=== PATIENT | male | born 1935 | race Caucasian/White ===

== ENCOUNTER 2017-12-04 11:14 | Inpatient (IN) | payer MEDICARE ==
--- NOTE | 2017-12-04 11:31 | ER Document Report ---
ED General - General Stated Complaint: POSSIBLE SYNCOPE Time Seen by Provider: 12/04/17 11:24 Notes: 82-year-old male to the emergency department chief complaint of syncope. Patient went to the bathroom and felt like he was going to pass out. Was able to get back to his chair. He was watching TV with his loved ones. He then had a syncopal episode. Had questionable seizure-like activity at that time. Patient does not really remember what happened. Did not hit his head. Denies any major pain or issues at this time. States that he is recently started a diuretic which has made his blood pressure low. States that his blood pressure has been running low on a home blood pressure monitor with systolic blood pressures in the 90s. Denies any black tarry stools. Denies any bright red blood in his stool. Denies any abdominal pain at this time. Patient does have a history of coronary artery disease with 3 stents. Had a abdominal aortic aneurysm repair (scheduled) approximately 4 years ago. Is not taking any blood thinners other than Plavix. - HPI Onset: Just prior to arrival Onset/Duration: Sudden - Related Data Allergies/Adverse Reactions: No Known Allergies Allergy (Unverified 12/04/17 12:39) Past Medical History - General Information source: Patient, Relative - Social History Smoking Status: Smoker,Current Status Unk Cigarette use (# per day): No Frequency of alcohol use: None Drug Abuse: None Lives with: Family Family History: Reviewed & Not Pertinent - Past Medical History Cardiac Medical History: Reports: Hx Congestive Heart Failure, Hx Coronary Artery Disease, Hx Hypertension, Hx Peripheral Vascular Disease Pulmonary Medical History: Reports: None EENT Medical History: Reports: None Neurological Medical History: Reports: None Endocrine Medical History: Reports: None Renal/ Medical History: Reports: None Malignancy Medical History: Reports None GI Medical History: Reports: None Musculoskeltal Medical History: Reports None Skin Medical History: Reports None Psychiatric Medical History: Reports: None Review of Systems - Review of Systems Constitutional: No symptoms reported EENT: No symptoms reported Cardiovascular: Syncope, Dizziness, Lightheaded, Edema. denies: Orthopnea, Dyspnea Respiratory: No symptoms reported Gastrointestinal: No symptoms reported Genitourinary: No symptoms reported Male Genitourinary: No symptoms reported Musculoskeletal: No symptoms reported Skin: No symptoms reported Hematologic/Lymphatic: No symptoms reported Neurological/Psychological: No symptoms reported, See HPI, Confusion, Seizure, Lost consciousness Physical Exam - Vital signs Vitals: Temp Resp Pulse Ox 98.3 F 17 95 12/04/17 11:21 12/04/17 11:21 12/04/17 11:21 Interpretation: Normal - General General appearance: Appears well, Alert - HEENT Head: Normocephalic, Atraumatic Eyes: Normal Pupils: PERRL - Respiratory Respiratory status: No respiratory distress Chest status: Nontender Breath sounds: Normal Chest palpation: Normal - Cardiovascular Rhythm: Regular Heart sounds: Normal auscultation Murmur: No - Abdominal Inspection: Normal Distension: No distension Bowel sounds: Normal Tenderness: Nontender Organomegaly: No organomegaly - Back Back: Normal, Nontender - Extremities General upper extremity: Normal inspection, Nontender, Normal color, Normal ROM , Normal temperature General lower extremity: Normal inspection, Nontender, Edema, Normal color, Normal ROM, Normal temperature. No: Zander's sign - Neurological Neuro grossly intact: Yes Cognition: Normal Orientation: AAOx4 Cecil Coma Scale Eye Opening: Spontaneous Cecil Coma Scale Verbal: Oriented Cecil Coma Scale Motor: Obeys Commands Cecil Coma Scale Total: 15 Speech: Normal Motor strength normal: LUE, RUE, LLE, RLE Sensory: Normal - Psychological Associated symptoms: Normal affect, Normal mood - Skin Skin Temperature: Warm Skin Moisture: Dry Skin Color: Normal Course - Re-evaluation Re-evalutation: 12/04/17 14:28 At this time patient's labs are fairly unremarkable EKG unremarkable. Blood pressure is 93/60 so still little bit low. Will admit to telemetry on observation status. Consulted with Dr. Springer who agrees with admit. 12/04/17 14:29 Laboratory 12/04/17 12/04/17 12/04/17 11:39 11:39 11:39 WBC 9.0 RBC 3.96 L Hgb 12.7 L Hct 37.9 MCV 96 MCH 31.9 MCHC 33.4 RDW 14.0 Plt Count 220 Seg Neutrophils % 72.8 Lymphocytes % 13.5 Monocytes % 10.1 Eosinophils % 3.1 Basophils % 0.5 Absolute Neutrophils 6.6 Absolute Lymphocytes 1.2 Absolute Monocytes 0.9 Absolute Eosinophils 0.3 Absolute Basophils 0.0 Sodium Cancelled Potassium Cancelled Chloride Cancelled Carbon Dioxide Cancelled Anion Gap Cancelled BUN Cancelled Creatinine Cancelled Est GFR ( Amer) Cancelled Est GFR (Non-Af Amer) Cancelled Glucose Cancelled Calcium Cancelled Total Bilirubin Cancelled Direct Bilirubin Cancelled Neonat Total Bilirubin Cancelled Neonat Direct Bilirubin Cancelled Neonat Indirect Bili Cancelled AST Cancelled ALT Cancelled Alkaline Phosphatase Cancelled Creatine Kinase Cancelled CK-MB (CK-2) Cancelled Troponin I Cancelled NT-Pro-B Natriuret Pep Cancelled Total Protein Cancelled Albumin Cancelled Urine Color Urine Appearance Urine pH Ur Specific Preston Urine Protein Urine Glucose (UA) Urine Ketones Urine Blood Urine Nitrite Urine Bilirubin Urine Urobilinogen Ur Leukocyte Esterase Urine WBC (Auto) Squamous Epi Cells Auto Urine Mucus (Auto) Urine Ascorbic Acid 12/04/17 12/04/17 12/04/17 12:26 12:26 13:50 WBC RBC Hgb Hct MCV MCH MCHC RDW Plt Count Seg Neutrophils % Lymphocytes % Monocytes % Eosinophils % Basophils % Absolute Neutrophils Absolute Lymphocytes Absolute Monocytes Absolute Eosinophils Absolute Basophils Sodium 141.3 Potassium 4.8 Chloride 100 Carbon Dioxide 31 H Anion Gap 10 BUN 37 H Creatinine 0.95 Est GFR ( Amer) > 60 Est GFR (Non-Af Amer) > 60 Glucose 106 Calcium 9.8 Total Bilirubin 0.5 Direct Bilirubin 0.3 Neonat Total Bilirubin Not Reportable Neonat Direct Bilirubin Not Reportable Neonat Indirect Bili Not Reportable AST 24 ALT 26 Alkaline Phosphatase 74 Creatine Kinase 39 L CK-MB (CK-2) 0.54 Troponin I < 0.012 NT-Pro-B Natriuret Pep 322 Total Protein 6.2 L Albumin 3.9 Urine Color YELLOW Urine Appearance CLEAR Urine pH 5.0 Ur Specific Preston 1.011 Urine Protein NEGATIVE Urine Glucose (UA) NEGATIVE Urine Ketones NEGATIVE Urine Blood NEGATIVE Urine Nitrite NEGATIVE Urine Bilirubin NEGATIVE Urine Urobilinogen NEGATIVE Ur Leukocyte Esterase NEGATIVE Urine WBC (Auto) 0 Squamous Epi Cells Auto <1 Urine Mucus (Auto) RARE Urine Ascorbic Acid NEGATIVE 12/04/17 14:29 Chest X-Ray 12/04/17 11:30 IMPRESSION: HEART ENLARGED WITHOUT FAILURE. NO OTHER SIGNIFICANT RADIOGRAPHIC FINDING IN THE CHEST. - Vital Signs Vital signs: Temp Pulse Resp BP Pulse Ox 98.3 F 12 93/61 L 94 12/04/17 11:21 12/04/17 14:01 12/04/17 14:01 12/04/17 14:01 - Laboratory Result Diagrams: 12/04/17 11:39 12/04/17 12:26 Laboratory results interpreted by me: 12/04/17 12/04/17 11:39 12:26 RBC 3.96 L Hgb 12.7 L Carbon Dioxide 31 H BUN 37 H Creatine Kinase 39 L Total Protein 6.2 L - EKG Interpretation by Me EKG shows normal: Sinus rhythm, [place], Intervals, QRS Complexes, ST-T Waves Discharge - Discharge Clinical Impression: Syncope and collapse Hypotension Qualifiers: Hypotension type: unspecified hypotension type Qualified Code(s): I95.9 - Hypotension, unspecified Disposition: ADMITTED OBSERVATION Admitting Provider: Hospitalist - [facility] Admitted: Telemetry
[2017-12-04 11:58] LABS: ABSOLUTE EOSINOPHILS # (AUTO) 0.3 10^3/uL (0.0-0.6); ABSOLUTE LYMPHOCYTES (AUTO) 1.2 10^3/uL (0.5-4.7); ABSOLUTE MONOCYTES (AUTO) 0.9 10^3/uL (0.1-1.4); ABSOLUTE NEUT (AUTO) 6.6 10^3/uL (1.7-8.2); BASOPHILS % (AUTO) 0.5 % (0-2); EOSINOPHILS % (AUTO) 3.1 % (0-6); HEMATOCRIT 37.9 % (37.9-51.0); HEMOGLOBIN 12.7 g/dL (13.5-17.0); LYMPHOCYTES % (AUTO) 13.5 % (13-45); MEAN CORPUSCULAR HEMOGLOBIN 31.9 pg (27.0-33.4); MEAN CORPUSCULAR HGB CONC 33.4 g/dL (32.0-36.0); MEAN CORPUSCULAR VOLUME 96 fl (80-97); MONOCYTES % (AUTO) 10.1 % (3-13); PLATELET COUNT 220 10^3/uL (150-450); RED BLOOD COUNT 3.96 10^6/uL (4.35-5.55); SEGMENTED NEUTROPHILS % (AUTO) 72.8 % (42-78); TOTAL CELLS COUNTED % (AUTO) 100 %
--- NOTE | 2017-12-04 12:46 | RADIOLOGY REPORT (SQ) ---
EXAM DESCRIPTION: CHEST SINGLE VIEW COMPLETED DATE/TIME: 12/04/2017 12:36 pm REASON FOR STUDY: syncope COMPARISON: None. NUMBER OF VIEWS: One view. TECHNIQUE: Single frontal radiographic view of the chest acquired. LIMITATIONS: None. FINDINGS: LUNGS AND PLEURA: No opacities, masses or pneumothorax. No pleural effusion. MEDIASTINUM AND HILAR STRUCTURES: No masses. Contour normal. HEART AND VASCULAR STRUCTURES: Heart enlarged without failure. Normal vasculature. BONES: No acute findings. HARDWARE: None in the chest. OTHER: No other significant finding. IMPRESSION: HEART ENLARGED WITHOUT FAILURE. NO OTHER SIGNIFICANT RADIOGRAPHIC FINDING IN THE CHEST. TECHNICAL DOCUMENTATION: JOB ID: [id number] [employer]- All Rights Reserved Reading location - IP/workstation name: [email or web address]
[2017-12-04 13:17] LABS: ALANINE AMINOTRANSFERASE 26 U/L (21-72); ALBUMIN 3.9 g/dL (3.5-5.0); ALKALINE PHOSPHATASE 74 U/L (38-126); ANION GAP 10 (5-19); ASPARTATE AMINO TRANSFERASE 24 U/L (17-59); BILIRUBIN,DIRECT 0.3 mg/dL (0.0-0.4); BILIRUBIN,TOTAL 0.5 mg/dL (0.2-1.3); BLOOD UREA NITROGEN 37 mg/dL (7-20); CALCIUM 9.8 mg/dL (8.4-10.2); CARBON DIOXIDE 31 mmol/L (22-30); CHLORIDE 100 mmol/L (98-107); CREATINE KINASE 39 U/L (55-170); GLUCOSE 106 mg/dL (75-110); POTASSIUM 4.8 mmol/L (3.6-5.0); SODIUM 141.3 mmol/L (137-145); TOTAL PROTEIN 6.2 g/dL (6.3-8.2)
[2017-12-04 13:27] LABS: CREATINE KINASE MB 0.54 ng/mL (<4.55); NT PRO BNP 322 pg/mL (<450)
[2017-12-04 13:29] LABS: TROPONIN I < 0.012 ng/mL
[2017-12-04 14:22] LABS: APPEARANCE,URINE CLEAR; BILIRUBIN,URINE NEGATIVE (NEGATIVE); COLOR,URINE YELLOW; GLUCOSE, URINE NEGATIVE (NEGATIVE); KETONES,URINE NEGATIVE (NEGATIVE); LEUKOCYTE ESTERASE,URINE NEGATIVE (NEGATIVE); NITRITE,URINE NEGATIVE (NEGATIVE); PROTEIN,URINE NEGATIVE (NEGATIVE); URINE SPECIFIC GRAVITY 1.011; UROBILINOGEN,URINE NEGATIVE mg/dL (<2.0)
[2017-12-04] MEDS ORDERED: NORMAL SALINE 1000 ML 1,000 ML IV ONE ×2 (15:53→16:33)
[2017-12-04] MEDS: NORMAL SALINE 1000 ML 1,000 ML IV PRN (17:11)
--- NOTE | 2017-12-04 18:49 | PDOC H&P ---
History of Present Illness Admission Date/PCP: 12/04/17 14:40 No local PCP Patient is visiting from [place] Patient complains of: Syncope History of Present Illness: CASIMIRO STEPHEN is a 82 year old male with known history of coronary artery disease status post stent in 2014, and peripheral vascular disease status post aortic abdominal aneurysm repair 2014, who was well until this morning when he felt lightheaded and had a syncopal episode witnessed by his Patient did not have any chest pain prior to the episode, no abdominal pain nausea vomiting, no melena. He promptly regained consciousness after the syncope without postictal state He was brought to the ED by EMS and was found hypotensive with a blood pressure of 80/60 After 2000 mL bolus normal saline patient is still hypotensive with a blood pressure of 80/40; Stat CTA of the chest and CTA of abdomen are being performed as this note is dictated Results are pending Past Medical History Cardiac Medical History: Reports: Congestive Heart Failure, Coronary Artery Disease, Hyperlipidema, Hypertension, Peripheral Vascular Disease Pulmonary Medical History: Reports: None EENT Medical History: Reports: None Neurological Medical History: Reports: None Endocrine Medical History: Reports: None Renal/ Medical History: Reports: None Malignancy Medical History: Reports: None GI Medical History: Reports: None Musculoskeltal Medical History: Reports: None Skin Medical History: Reports: None Psychiatric Medical History: Reports: None Past Surgical History Past Surgical History: Reports: Coronary Stent - 2014, Vascular Surgery - 2014 AAA repair Social History Information Source: Patient Lives with: Family Smoking Status: Former Smoker - Quit smoking 11 years ago Frequency of Alcohol Use: None Hx Recreational Drug Use: No - Advance Directive Resuscitation Status: Full Code Surrogate healthcare decision maker:: His Jailyn Family History Family History: CAD Parental Family History Reviewed: Yes - Father of heart disease Children Family History Reviewed: Yes Sibling(s) Family History Reviewed.: Yes - Brother of heart disease Medication/Allergy Home Medications: Allopurinol [Zyloprim 300 mg Tablet] 300 mg PO DAILY 12/04/17 Amlodipine Besylate [Norvasc 5 mg Tablet] 5 mg PO DAILY 12/04/17 Atorvastatin Calcium [Lipitor 20 mg Tablet] 20 mg PO QHS 12/04/17 Clopidogrel Bisulfate [Plavix 75 mg Tablet] 75 mg PO DAILY 12/04/17 Finasteride [Proscar 5 mg Tablet] 5 mg PO QPM 12/04/17 Furosemide [Lasix 40 mg Tablet] 40 mg PO DAILY 12/04/17 Hydrocodone Bit/Acetaminophen [Hydrocodon-Acetaminophen 5-325] 1 tab PO Q6HP PRN 12/04/17 Isosorbide Dinitrate [Isordil Titradose 20 mg Tablet] 20 mg PO DAILY 12/04/17 Levothyroxine Sodium [Synthroid 0.05 mg Tablet] 0.05 mg PO Q6AM 12/04/17 Lisinopril [Prinivil 10 mg Tablet] 10 mg PO DAILY 12/04/17 Metoprolol Tartrate [Lopressor 50 mg Tablet] 50 mg PO DAILY 12/04/17 Potassium Chloride [Klor-Con 10 Meq Tablet.sa] 10 meq PO DAILY 12/04/17 Trazodone HCl [Desyrel 50 mg Tablet] 50 mg PO QHS 12/04/17 Triamterene/Hydrochlorothiazid [Triamterene-Hctz 37.5-25 mg Cp] 1 cap PO DAILY 12/04/17 Allergies/Adverse Reactions: No Known Allergies Allergy (Unverified 12/04/17 12:39) Review of Systems Constitutional: PRESENT: weakness Cardiovascular: PRESENT: edema - Lower extremities left more than the right Respiratory: ABSENT: cough, hemoptysis Gastrointestinal: ABSENT: abdominal pain, constipation, diarrhea, hematemesis, hematochezia, nausea, vomiting Genitourinary: ABSENT: dysuria, hematuria Musculoskeletal: ABSENT: joint swelling Integumentary: ABSENT: rash, wounds Neurological: ABSENT: abnormal gait, abnormal speech, confusion, dizziness, focal weakness, syncope Psychiatric: ABSENT: anxiety, depression, homidical ideation, suicidal ideation Hematologic/Lymphatic: ABSENT: easy bleeding, easy bruising Physical Exam Vital Signs: Temp Pulse Resp BP Pulse Ox 98.3 F 16 83/64 L 95 12/04/17 11:21 12/04/17 18:00 12/04/17 17:46 12/04/17 18:00 General appearance: PRESENT: no acute distress, cooperative, well-developed, well-nourished Head exam: PRESENT: atraumatic, normocephalic Eye exam: PRESENT: conjunctiva pink, EOMI, PERRLA. ABSENT: scleral icterus Neck exam: ABSENT: carotid bruit, JVD, lymphadenopathy, thyromegaly Respiratory exam: PRESENT: clear to auscultation blayne. ABSENT: rales, rhonchi, wheezes Cardiovascular exam: PRESENT: RRR. ABSENT: diastolic murmur, rubs, systolic murmur Pulses: PRESENT: normal dorsalis pedis pul GI/Abdominal exam: PRESENT: distended, normal bowel sounds, soft. ABSENT: guarding, mass, organolmegaly, rebound, tenderness Rectal exam: PRESENT: deferred Extremities exam: PRESENT: full ROM. ABSENT: calf tenderness, clubbing, pedal edema Neurological exam: PRESENT: alert, awake, oriented to person, oriented to place , oriented to time, oriented to situation, CN II-XII grossly intact. ABSENT: motor sensory deficit Psychiatric exam: PRESENT: appropriate affect, normal mood. ABSENT: homicidal ideation, suicidal ideation Skin exam: PRESENT: dry, intact, warm. ABSENT: cyanosis, rash Results Laboratory Results: 12/04/17 12/04/17 11:39 12:26 WBC 9.0 Hgb 12.7 L Hct 37.9 Plt Count 220 Sodium 141.3 Potassium 4.8 Chloride 100 Carbon Dioxide 31 H BUN 37 H Creatinine 0.95 Impressions: Chest X-Ray 12/04/17 11:30 IMPRESSION: HEART ENLARGED WITHOUT FAILURE. NO OTHER SIGNIFICANT RADIOGRAPHIC FINDING IN THE CHEST. Assessment & Plan - Diagnosis (1) Coronary artery disease Is this a current diagnosis for this admission?: Yes Plan: Initial troponin is normal 12/04/17 12:26 Troponin I < 0.012 Patient is very comfortable lying flat The chest x-ray was not described as fluid overload Very unlikely that the patient has cardiogenic shock EKG SINUS RHYTHM EKG does not show any acute changes We will obtain serial cardiac enzymes, BNP, repeat EKG in a.m. Echocardiogram to be scheduled in a.m. (2) Hypotension Qualifiers: Hypotension type: unspecified hypotension type Qualified Code(s): I95.9 - Hypotension, unspecified Is this a current diagnosis for this admission?: Yes Plan: Etiology for hypotension is likely hypovolemia Patient has no anemia no abdominal pain He does have a history of aortic aneurysm repair and CTA of the abdomen is pending at time of this dictation If patient needs vascular surgery urgent transfer will be arranged If CTA of abdomen and the chest are normal we will obtain serial H&H, start PPI and reevaluate patient Septic shock is unlikely Patient has no fever no leukocytosis No metabolic acidosis, As mentioned above cardiogenic shock also is unlikely (3) Syncope and collapse Is this a current diagnosis for this admission?: Yes Plan: Patient had syncope and collapse without chest pain and/or headache This is likely secondary to hypotension and vasovagal episode (4) Peripheral vascular disease Is this a current diagnosis for this admission?: Yes - Time Time Spent with patient: Patient is to be reevaluated after CTA chest and CTA abdomen performed We will continue to hydrate the patient We will keep the patient in another thousand thousand milliliters of fluid bolus ; If CTA's are negative patient will be admitted to the ICU overnight arterial blood pressure stabilized We will continue hydration support blood pressure with IV Levophed Time Spent: Greater than 70 Minutes - Inpatient Certification Based on my medical assessment, after consideration of the patient's comorbidities, presenting symptoms, or acuity I expect that the services needed warrant INPATIENT care.: Yes Medical Necessity: Need For IV Fluids, Need For Continuous Telemetry Monitoring , Risk of Complication if Not Cared For in Hospital
--- NOTE | 2017-12-04 19:22 | RADIOLOGY REPORT (SQ) ---
EXAM DESCRIPTION: CTA CHEST; CTA ABDOMEN COMPLETED DATE/TIME: 12/04/2017 6:54 pm REASON FOR STUDY: syncope S/P AAA repair COMPARISON: None. TECHNIQUE: CTA of the chest, abdomen performed using helical scanning technique with dynamic intrave nous contrast injection. Images reviewed with lung, soft tissue and bone windows. Reconstructed cor onal and sagittal MPR images reviewed. Additional 3 dimensional post-processing performed to develop Maximal Intensity Projection images (OR P). All images stored on PACS. All CT scanners at this facility use dose modulation, iterative reconstruction, and/or weight based d osing when appropriate to reduce radiation dose to as low as reasonably achievable (ALARA). [facility]: Dose Right [facility]: CareDose [facility]: Dose Right [facility]: Teradose 4D [facility]: S3Bubble CONTRAST TYPE AND DOSE: contrast/concentration: Isovue 370.00 mg/ml; Total Contrast Delivered: 100.0 ml; Total Saline Delivered: 90.0 ml Contrast bolus adequate for pulmonary arteries and aorta. RENAL FUNCTION: GFR > 60. RADIATION DOSE: CT Rad equipment meets quality standard of care and radiation dose reduction techniq ues were employed. CTDIvol: 18.7 - 39.7 mGy. DLP: 1882 mGy-cm. . LIMITATIONS: None. FINDINGS: CHEST No aortic aneurysm or dissection. No pulmonary embolus. Marked coronary calcification. Lungs clear allowing for scattered cysts. No mediastinal mass or adenopathy. Bones intact. ABDOMEN Imaging is performed through the aortic bifurcation. Status post endovascular repair. No dissection . Celiac and superior mesenteric and bilateral renal arteries are patent as are the bilateral common , external and proximal internal iliac arteries. Heavy vascular calcification. No gross endoleak bu t pre contrast imaging was not performed. No acute bowel pathology, ascites or worrisome solid organ findings. No calcified gallstones or duct dilatation. Probable diverticulosis in the distal colon, incompletely assessed. Visualized appendix normal, incompletely assessed. No free air. No retrope ritoneal hemorrhage. 3D MIPS: Confirm above findings. OTHER: No other significant finding. IMPRESSION: 1. No worrisome thoracic findings. Aorta normal. No pulmonary embolus. 2. Status pos t endovascular repair of aortic aneurysm. Good flow through the endograft. No arterial occlusion or acute abdominal process. COMMENT: Quality ID # 436: Final reports with documentation of one or more dose reduction techniques (e.g., Automated exposure control, adjustment of the mA and/or kV according to patient size, use of iterative reconstruction technique) TECHNICAL DOCUMENTATION: JOB ID: [id number] [employer]- All Rights Reserved Reading location - IP/workstation name: [email or web address]
--- NOTE | 2017-12-04 19:22 | RADIOLOGY REPORT (SQ) ---
EXAM DESCRIPTION: CTA CHEST; CTA ABDOMEN COMPLETED DATE/TIME: 12/04/2017 6:54 pm REASON FOR STUDY: syncope S/P AAA repair COMPARISON: None. TECHNIQUE: CTA of the chest, abdomen performed using helical scanning technique with dynamic intrave nous contrast injection. Images reviewed with lung, soft tissue and bone windows. Reconstructed cor onal and sagittal MPR images reviewed. Additional 3 dimensional post-processing performed to develop Maximal Intensity Projection images ([place] P). All images stored on PACS. All CT scanners at this facility use dose modulation, iterative reconstruction, and/or weight based d osing when appropriate to reduce radiation dose to as low as reasonably achievable (ALARA). [facility]: Dose Right [facility]: CareDose [facility]: Dose Right [facility]: Teradose 4D [facility]: [employer] CONTRAST TYPE AND DOSE: contrast/concentration: Isovue 370.00 mg/ml; Total Contrast Delivered: 100.0 ml; Total Saline Delivered: 90.0 ml Contrast bolus adequate for pulmonary arteries and aorta. RENAL FUNCTION: GFR > 60. RADIATION DOSE: CT Rad equipment meets quality standard of care and radiation dose reduction techniq ues were employed. CTDIvol: 18.7 - 39.7 mGy. DLP: 1882 mGy-cm. . LIMITATIONS: None. FINDINGS: CHEST No aortic aneurysm or dissection. No pulmonary embolus. Marked coronary calcification. Lungs clear allowing for scattered cysts. No mediastinal mass or adenopathy. Bones intact. ABDOMEN Imaging is performed through the aortic bifurcation. Status post endovascular repair. No dissection . Celiac and superior mesenteric and bilateral renal arteries are patent as are the bilateral common , external and proximal internal iliac arteries. Heavy vascular calcification. No gross endoleak bu t pre contrast imaging was not performed. No acute bowel pathology, ascites or worrisome solid organ findings. No calcified gallstones or duct dilatation. Probable diverticulosis in the distal colon, incompletely assessed. Visualized appendix normal, incompletely assessed. No free air. No retrope ritoneal hemorrhage. 3D MIPS: Confirm above findings. OTHER: No other significant finding. IMPRESSION: 1. No worrisome thoracic findings. Aorta normal. No pulmonary embolus. 2. Status pos t endovascular repair of aortic aneurysm. Good flow through the endograft. No arterial occlusion or acute abdominal process. COMMENT: Quality ID # [id number]: Final reports with documentation of one or more dose reduction techniques (e.g., Automated exposure control, adjustment of the mA and/or kV according to patient size, use of iterative reconstruction technique) TECHNICAL DOCUMENTATION: JOB ID: [id number] [employer]- All Rights Reserved Reading location - IP/workstation name: [email or web address]
[2017-12-04] MEDS ORDERED: DEXTROSE 5%-WATER 250 ML with NOREPINEPHRINE BITARTRATE 4 MG IV PRN ×2 (19:33)
[2017-12-04] MEDS ORDERED: PANTOPRAZOLE SODIUM 40 MG VIAL IV ONE (19:45)
[2017-12-04 19:57] LABS: HEMATOCRIT 35.3 % (37.9-51.0); HEMOGLOBIN 11.7 g/dL (13.5-17.0); MEAN CORPUSCULAR HEMOGLOBIN 32.2 pg (27.0-33.4); MEAN CORPUSCULAR HGB CONC 33.3 g/dL (32.0-36.0); MEAN CORPUSCULAR VOLUME 97 fl (80-97); PLATELET COUNT 185 10^3/uL (150-450); RED BLOOD COUNT 3.65 10^6/uL (4.35-5.55); RED CELL DISTRIBUTION WIDTH 14.1 % (11.5-14.0); WHITE BLOOD COUNT 7.3 10^3/uL (4.0-10.5)
[2017-12-04 20:30] LABS: CREATINE KINASE MB 0.46 ng/mL (<4.55)
[2017-12-04 20:40] LABS: TROPONIN I < 0.012 ng/mL
[2017-12-04] MEDS ORDERED: ALBUTEROL SULFATE 0.083% NEB 2.5 MG/3 ML AMPUL NEB PRN (21:57)
[2017-12-04] MEDS: HYDROCODONE/ACETAMINOPHEN 5-325 MG TABLET PO PRN (22:22)
[2017-12-04] MEDS: ATORVASTATIN CALCIUM 20 MG TABLET PO SCH (22:23)
[2017-12-04] MEDS: FLUTICASONE/SALMETEROL DISKUS 250-50 MCG/DOSE IH SCH (22:25)
[2017-12-04 23:32] LABS: HEMATOCRIT 34.7 % (37.9-51.0); HEMOGLOBIN 11.6 g/dL (13.5-17.0); MEAN CORPUSCULAR HEMOGLOBIN 32.2 pg (27.0-33.4); MEAN CORPUSCULAR HGB CONC 33.5 g/dL (32.0-36.0); MEAN CORPUSCULAR VOLUME 96 fl (80-97); PLATELET COUNT 180 10^3/uL (150-450); RED BLOOD COUNT 3.61 10^6/uL (4.35-5.55); RED CELL DISTRIBUTION WIDTH 14.1 % (11.5-14.0)
[2017-12-05] MEDS: IPRATROPIUM/ALBUTEROL 0.5-2.5 MG/3 ML AMPUL NEB SCH ×2 (02:00→08:25)
[2017-12-05 02:15] LABS: TROPONIN I < 0.012 ng/mL
[2017-12-05 03:57] LABS: HEMATOCRIT 35.1 % (37.9-51.0); HEMOGLOBIN 11.6 g/dL (13.5-17.0); MEAN CORPUSCULAR HEMOGLOBIN 31.9 pg (27.0-33.4); MEAN CORPUSCULAR HGB CONC 33.2 g/dL (32.0-36.0); MEAN CORPUSCULAR VOLUME 96 fl (80-97); PLATELET COUNT 157 10^3/uL (150-450); RED BLOOD COUNT 3.65 10^6/uL (4.35-5.55); RED CELL DISTRIBUTION WIDTH 14.1 % (11.5-14.0); WHITE BLOOD COUNT 6.7 10^3/uL (4.0-10.5)
[2017-12-05 04:50] LABS: FREE T4 (FREE THYROXINE) 0.92 ng/dL (0.78-2.19)
[2017-12-05 05:04] LABS: THYROID STIMULATING HORMONE 4.53 uIU/mL (0.47-4.68)
[2017-12-05] MEDS: LEVOTHYROXINE SODIUM 0.05 MG TABLET PO SCH (06:19)
[2017-12-05 08:15] LABS: HEMOGLOBIN 12.6 g/dL (13.5-17.0); MEAN CORPUSCULAR HEMOGLOBIN 32.2 pg (27.0-33.4); MEAN CORPUSCULAR HGB CONC 33.3 g/dL (32.0-36.0); MEAN CORPUSCULAR VOLUME 97 fl (80-97); PLATELET COUNT 185 10^3/uL (150-450); RED BLOOD COUNT 3.92 10^6/uL (4.35-5.55); RED CELL DISTRIBUTION WIDTH 14.1 % (11.5-14.0); WHITE BLOOD COUNT 6.6 10^3/uL (4.0-10.5)
[2017-12-05 08:17] LABS: CREATINE KINASE MB 0.65 ng/mL (<4.55)
[2017-12-05 08:19] LABS: TROPONIN I < 0.012 ng/mL
--- NOTE | 2017-12-05 08:26 | RADIOLOGY REPORT (SQ) ---
EXAM DESCRIPTION: CT HEAD WITHOUT COMPLETED DATE/TIME: 12/05/2017 8:15 am REASON FOR STUDY: syncope E03.9 HYPOTHYROIDISM, UNSPECIFIED I42.9 CARDIOMYOPATHY, UNSPECIFIED I25. 5 ISCHEMIC CARDIOMYOPATHY COMPARISON: None. TECHNIQUE: Axial images acquired through the brain without intravenous contrast. Images reviewed wi th bone, brain and subdural windows. Images stored on PACS. All CT scanners at this facility use dose modulation, iterative reconstruction, and/or weight based d osing when appropriate to reduce radiation dose to as low as reasonably achievable (ALARA). [facility]: Dose Right [facility]: CareDose [facility]: Dose Right [facility]: Teradose 4D [facility]: [employer] RADIATION DOSE: CT Rad equipment meets quality standard of care and radiation dose reduction techniq ues were employed. CTDIvol: 53.2 mGy. DLP: 1017 mGy-cm.mGy. LIMITATIONS: None. FINDINGS: VENTRICLES: Prominent. CEREBRUM: No masses. No hemorrhage. No midline shift. Areas of low density in the white matter mos t likely due to chronic micro-vascular ischemic change. No evidence for acute infarction. CEREBELLUM: No masses. No hemorrhage. No alteration of density. No evidence for acute infarction. EXTRAAXIAL SPACES: Age-related involutional change. No fluid collections. No masses. ORBITS AND GLOBE: No intra- or extraconal masses. Normal contour of globe without masses. CALVARIUM: No fracture. PARANASAL SINUSES: No fluid or mucosal thickening. SOFT TISSUES: No mass or hematoma. OTHER: No other significant finding. IMPRESSION: CHRONIC CHANGES OF ATROPHY AND MICROVASCULAR ISCHEMIA. NO ACUTE PROCESS. EVIDENCE OF ACUTE STROKE: NO. TECHNICAL DOCUMENTATION: JOB ID: [id number] Quality ID # [id number]: Final reports with documentation of one or more dose reduction techniques (e.g., Au tomated exposure control, adjustment of the mA and/or kV according to patient size, use of iterative reconstruction technique) 2010 [employer]- All Rights Reserved Reading location - IP/workstation name: [email or web address]
--- NOTE | 2017-12-05 09:28 | EKG REPORT ---
SEVERITY:- NORMAL ECG - SINUS RHYTHM : Confirmed by: Iris Cancino 05-Dec-2017 09:28:04
--- NOTE | 2017-12-05 09:28 | EKG REPORT ---
SEVERITY:- ABNORMAL ECG - SINUS RHYTHM : Confirmed by: Iris Cancino 05-Dec-2017 09:27:55
[2017-12-05] MEDS: FLUTICASONE/SALMETEROL DISKUS 250-50 MCG/DOSE IH SCH ×2 (10:36→21:35)
[2017-12-05] MEDS: PANTOPRAZOLE SODIUM 40 MG VIAL IV SCH ×2 (10:36→21:35)
[2017-12-05] MEDS: HYDROCODONE/ACETAMINOPHEN 5-325 MG TABLET PO PRN ×2 (11:17→20:21)
[2017-12-05] MEDS: NORMAL SALINE 1000 ML 1,000 ML IV PRN (13:11)
[2017-12-05] MEDS ORDERED: LEVALBUTEROL HCL NEB 0.63 MG/3 ML AMPUL NEB PRN (13:40)
--- NOTE | 2017-12-05 14:19 | PROGRESS NOTE E ---
Progress Note NAME: CASIMIRO STEPHEN : 1935 AGE: 82Y DATE: ROOM: 326 SUBJECTIVE: The patient is currently lying in bed. He states that he feels better today in comparison to yesterday. He states he feels like his normal self. The patient has been getting up ambulating to the bathroom without issues. The patient does not have any nausea, vomiting. There has been no diarrhea or shortness of breath, dizziness, chest pain. No fevers or chills. The patient has been afebrile. His blood pressures have been in a good range, and the patient does not voice any other concerns at this time. REVIEW OF SYSTEMS: A full review of systems is negative. MEDICATIONS: Medications have been reviewed. OBJECTIVE: GENERAL: The patient is an 82-year-old male who is awake, alert, and oriented to person, place, and situation. He is verbal and conversational. He does not appear to be in any acute distress. VITAL SIGNS: Temperature is 98.2, pulse 74, respirations 18, blood pressure is 100/72, oxygen saturation is 96% on room air. SKIN: Warm and dry with no rash. He is not diaphoretic. HEENT: Pupils are equal and reactive to light and accommodation. Conjunctivae are pink. There is no evidence of JVP. CARDIOVASCULAR: Heart is regular. No rub. CHEST: The patient is diminished symmetrical, unlabored. ABDOMEN: Obese, soft, nontender. EXTREMITIES: No clubbing, cyanosis, or edema. PSYCHIATRIC: Appropriate affect, pleasant mood. DIAGNOSTIC LABORATORY VALUES: Hematology obtained on 12/05/2017: WBC 6.6, hemoglobin 12.6, hematocrit 38.0, platelet count 185,000. Chemistries obtained on 12/05/2017: Sodium 141, potassium 4.8, chloride 94, potassium 3.1, BUN 37, creatinine 0.95, glucose 106, calcium 9.8. Bilirubin 0.5, AST 24, ALT 26. IMPRESSION AND PLAN: 1. SYNCOPE. Most likely this is due to hypovolemia. The patient has recently been started on a diuretic. The patient has been hydrated. Patient is scheduled for a carotid and echo in the a.m. Will follow. 2. HYPOTENSION. Appears to be due to a combination of medication as well as hypovolemia. The patient has been hydrated. We will discontinue IV fluids and resume the patient's beta-yovani at a decreased dosage and continue to hold the patient's other antihypertensive medications. 3. CORONARY ARTERY DISEASE. The patient is on a lot of blood pressure effective medications. We will resume these judiciously and follow. 4. PERIPHERAL VASCULAR DISEASE. Patient has no evidence of thrombus. 5. TRIPLE A REPAIR. The patient's imaging has been unremarkable. 6. BRUISING OF THE LEFT ARM. The patient appears to have contact bruising area on the left arm, however, given the circular pattern of this, it is quite concerning for a tick bite. The family is quite concerned for possible Lyme bullet. The patient does not fit this in this sequelae, but we will add a Western blot at request. DISPOSITION: The patient is a FULL CODE. Pending patient's symptomatology and diagnostic findings, we will reevaluate in the a.m. Time spent on this followup including assessment, plan, physical examination, patient education, and review of records is 25 minutes. DICTATING PHYSICIAN: JAYA LANGFORD NP [id number] PHY#: [id number] ID: [id number] JOB#: [id number] ACCT: [id number] cc: > MARQUEZ
[2017-12-05] MEDS ORDERED: CLOPIDOGREL BISULFATE 75 MG TABLET PO ONE (14:30)
[2017-12-05] MEDS ORDERED: METOPROLOL TARTRATE 25 MG TABLET PO ONE (14:30)
--- NOTE | 2017-12-05 16:21 | XCELERA REPORT ---
[address] [address] Lower Extremity Venous Evaluation Name: CASIMIRO STEPHEN Age: 82 yrs Gender: Male : 1935 Patient Status: Inpatient Patient Location: [place] [address]^A Study Date: 12/04/2017 05:48 PM Procedure: Color flow and duplex imaging bilaterally of the veins of the lower extremities as well as the Common Femoral veins. Reason For Study: swollen legs Ordering Physician: BHUPINDER WATKINS Performed By: Birdie Norman Right Sided Venous Evaluation Normal vessel filling wall to wall, compression and augmentation as well as Colour flow down to the infrageniculate veins. Left Sided Venous Evaluation Normal vessel filling wall to wall, compression and augmentation as well as Colour flow down to the infrageniculate veins. Interpretation Summary No duplex evidence of DVT or obstruction in the bilateral lower extremities. : BHUPINDER WATKINS > Beto Burrell
[2017-12-05] MEDS ORDERED: FINASTERIDE 5 MG TABLET PO SCH (18:00)
[2017-12-05] MEDS: METOPROLOL TARTRATE 25 MG TABLET PO SCH (21:34)
[2017-12-05] MEDS: ATORVASTATIN CALCIUM 20 MG TABLET PO SCH (21:35)
[2017-12-05] MEDS ORDERED: TRAZODONE HCL 50 MG TABLET PO SCH (22:00)
[2017-12-06] MEDS: LEVOTHYROXINE SODIUM 0.05 MG TABLET PO SCH (05:38)
[2017-12-06 08:08] VITALS: BP 117/65
[2017-12-06] MEDS ORDERED: CLOPIDOGREL BISULFATE 75 MG TABLET PO SCH (10:00)
[2017-12-06] MEDS: FLUTICASONE/SALMETEROL DISKUS 250-50 MCG/DOSE IH SCH (10:29)
[2017-12-06] MEDS: METOPROLOL TARTRATE 25 MG TABLET PO SCH (10:29)
[2017-12-06] MEDS: PANTOPRAZOLE SODIUM 40 MG VIAL IV SCH (10:30)
--- NOTE | 2017-12-06 13:51 | RADIOLOGY REPORT (SQ) ---
EXAM DESCRIPTION: CAROTID DOPPLER COMPLETED DATE/TIME: 12/06/2017 1:37 pm REASON FOR STUDY: syncope E03.9 HYPOTHYROIDISM, UNSPECIFIED I42.9 CARDIOMYOPATHY, UNSPECIFIED I25. 5 ISCHEMIC CARDIOMYOPATHY COMPARISON: None. TECHNIQUE: Grayscale ultrasound, Doppler velocity and spectra, and color Doppler images acquired of the extra-cranial carotid and vertebral arteries. Images stored on PACS. LIMITATIONS: Diffuse vascular wall calcifications. FINDINGS: RIGHT CAROTID CCA Velocities: Within normal limits. ICA Velocities Peak systolic 0.88 m/s. End diastolic 0.30 m/s. Proximal ICA/CCA peak systolic ratio 1.3. Calcified plaque obscures portions of the proximal ICA. No distal turbulence. LEFT CAROTID CCA Velocities: Within normal limits. ICA Velocities Peak systolic 0.89 m/s. End diastolic 0.28 m/s. Proximal ICA/CCA peak systolic ratio 1.1. Calcified plaque obscures the proximal ICA. No distal turbulence. VERTEBRAL ARTERIES: Antegrade flow. Normal waveforms. SUBCLAVIAN ARTERIES: No finding. OTHER: No other significant finding. IMPRESSION: Extensive vascular calcifications. No significant stenosis identified. COMMENT: Quality ID #[id number]: Velocity criteria are extrapolated from the diameter data as defined by t he Society of Radiologists in Ultrasound Consensus Conference. Radiology 2003: 229; 340-346. TECHNICAL DOCUMENTATION: JOB ID: [id number] [employer]- All Rights Reserved Reading location - IP/workstation name: [email or web address]
[2017-12-06] MEDS: HYDROCODONE/ACETAMINOPHEN 5-325 MG TABLET PO PRN (15:45)
--- NOTE | 2017-12-06 20:23 | XCELERA REPORT ---
[address] [address] Transthoracic Echocardiogram Report Name: CASIMIOR STEPHEN Age: 82 yrs Gender: Male : 1935 Patient Status: Inpatient Patient Location: [address] [place] [address] Study Date: 12/06/2017 09:29 AM Height: 68 in Weight: 220 lb BSA: 2.1 m2 Procedure: A complete two-dimensional transthoracic echocardiogram was performed (2D, M-mode, spectral and color flow Doppler). The study was technically adequate with some images being suboptimal in quality. Reason For Study: hypotension Ordering Physician: BHUPINDER WATKINS Performed By: Ila Aden Interpretation Summary The left ventricular ejection fraction is normal. There is mild concentric left ventricular hypertrophy. The left ventricle is grossly normal size. Doppler measurements suggest pseudonormalized left ventricular relaxation, which is associated with grade II/IV or mild to moderate diastolic dysfunction Wall motion cannot be accurately commented on, but no definite regional wall motion abnormalities noted. The right ventricle is mildly dilated. The right ventricular systolic function is normal. Borderline right atrial enlargement. The left atrial size is normal. There is no mitral valve stenosis. There is a trace amount of mitral regurgitation There is mild aortic stenosis There is a peak gradient of 20 mm of Hg. There is a trace to mild amount of aortic regurgitation There is a trace or physiologic amount of tricuspid regurgitation Tricuspid regurgitation jet envelope not well defined to measure RV systolic pressure accurately. There is no pericardial effusion. MMode/2D Measurements & Calculations RVDd: 3.0 cm LVIDd: 4.5 cm FS: 41.5 % Ao root diam: 3.0 cm IVSd: 1.0 cm LVIDs: 2.6 cm EDV(Teich): 93.1 ml LVPWd: 1.0 cm ESV(Teich): 25.6 ml Ao root area: 6.9 cm2 EF(Teich): 72.5 % LA dimension: 3.5 cm LVOT diam: 2.3 cm LVOT area: 4.3 cm2 Doppler Measurements & Calculations MV E max david: MV P1/2t max david: Ao V2 max: AI max david: 104.6 cm/sec 104.6 cm/sec 224.4 cm/sec 403.1 cm/sec MV A max david: MV P1/2t: 74.3 msec Ao max PG: AI max P.5 cm/sec MVA(P1/2t): 3.0 cm2 20.2 mmHg 65.0 mmHg MV E/A: 0.91 MV dec slope: Ao V2 mean: AI dec slope: 412.6 cm/sec2 136.0 cm/sec 181.7 cm/sec2 MV dec time: Ao mean PG: AI P1/2t: 0.26 sec 9.0 mmHg 649.8 msec Ao V2 VTI: 40.2 cm FARRUKH(I,D): 2.6 cm2 FARRUKH(V,D): 2.3 cm2 LV V1 max PG: SV(LVOT): 106.4 ml PA V2 max: TR max david: 5.5 mmHg 98.7 cm/sec 253.8 cm/sec LV V1 mean PG: PA max PG: TR max P.4 mmHg 3.9 mmHg 25.8 mmHg LV V1 max: 117.7 cm/sec LV V1 mean: 69.3 cm/sec LV V1 VTI: 24.7 cm Left Ventricle The left ventricle is grossly normal size. There is mild concentric left ventricular hypertrophy. The left ventricular ejection fraction is normal. Doppler measurements suggest pseudonormalized left ventricular relaxation, which is associated with grade II/IV or mild to moderate diastolic dysfunction. Wall motion cannot be accurately commented on, but no definite regional wall motion abnormalities noted. Right Ventricle The right ventricle is mildly dilated. There is normal right ventricular wall thickness. The right ventricular systolic function is normal. Atria Borderline right atrial enlargement. The left atrial size is normal. Interarterial septum not well visualized and not well dopplered. Cannot comment on ASD/PFO presence. Mitral Valve There is mild mitral annular calcification. There is no mitral valve stenosis. There is a trace amount of mitral regurgitation. Aortic Valve The aortic valve is mildly calcified. There is mild aortic stenosis. There is a peak gradient of 20 mm of Hg. There is a trace to mild amount of aortic regurgitation. Tricuspid Valve The tricuspid valve is not well visualized, but is grossly normal. There is no tricuspid stenosis. There is a trace or physiologic amount of tricuspid regurgitation. Tricuspid regurgitation jet envelope not well defined to measure RV systolic pressure accurately. Pulmonic Valve The pulmonic valve is not well visualized. Great Vessels The aortic root is not well visualized but is probably normal size. The inferior vena cava appeared normal and decreased > 50% with respiration (RAP 5-10 mmHg). Effusions There is no pericardial effusion. : BHUPINDRE WATKINS > Iris Cancino
--- NOTE | 2017-12-06 21:37 | PDOC DISCHARGE SUMMARY ---
General - Admit/Disc Date/PCP Admission Date/Primary Care Provider: 12/04/17 14:40 Discharge Date: 12/06/17 - Discharge Diagnosis (1) Coronary artery disease Is this a current diagnosis for this admission?: Yes (2) Hypotension Is this a current diagnosis for this admission?: Yes (3) Syncope and collapse Is this a current diagnosis for this admission?: Yes (4) Peripheral vascular disease Is this a current diagnosis for this admission?: Yes (5) Dehydration Is this a current diagnosis for this admission?: Yes (6) Chronic diastolic CHF (congestive heart failure) Is this a current diagnosis for this admission?: Yes - Additional Information Resuscitation Status: Full Code Discharge Diet: Cardiac Discharge Activity: Activity As Tolerated Prescriptions: Furosemide [Lasix 20 mg Tablet] 20 mg PO QAM #30 tablet Lisinopril [Prinivil 2.5 mg Tablet] 2.5 mg PO DAILY 30 Days #30 tablet Metoprolol Tartrate [Lopressor 25 mg Tablet] 12.5 mg PO Q12 30 Days #30 tablet Home Medications: Allopurinol [Zyloprim 300 mg Tablet] 300 mg PO DAILY 12/04/17 Atorvastatin Calcium [Lipitor 20 mg Tablet] 20 mg PO QHS 12/04/17 Clopidogrel Bisulfate [Plavix 75 mg Tablet] 75 mg PO DAILY 12/04/17 Finasteride [Proscar 5 mg Tablet] 5 mg PO QPM 12/04/17 Hydrocodone Bit/Acetaminophen [Hydrocodon-Acetaminophen 5-325] 1 tab PO Q6HP PRN 12/04/17 Isosorbide Dinitrate [Isordil Titradose 20 mg Tablet] 20 mg PO DAILY 12/04/17 Levothyroxine Sodium [Synthroid 0.05 mg Tablet] 0.05 mg PO Q6AM 12/04/17 Trazodone HCl [Desyrel 50 mg Tablet] 50 mg PO QHS 12/04/17 Furosemide [Lasix 20 mg Tablet] 20 mg PO QAM #30 tablet 12/06/17 Lisinopril [Prinivil 2.5 mg Tablet] 2.5 mg PO DAILY 30 Days #30 tablet 12/06/17 Metoprolol Tartrate [Lopressor 25 mg Tablet] 12.5 mg PO Q12 30 Days #30 tablet 12/06/17 History of Present Illness Patient complains of: Syncope and collapse History of Present Illness: CASIMIRO STEPHEN is a 82 year old male with known history of coronary artery disease status post stent in 2014, and peripheral vascular disease status post aortic abdominal aneurysm repair 2014, who was well until this morning when he felt lightheaded and had a syncopal episode witnessed by his Patient did not have any chest pain prior to the episode, no abdominal pain nausea vomiting, no melena. He promptly regained consciousness after the syncope without postictal state He was brought to the ED by EMS and was found hypotensive with a blood pressure of 80/60 After 2000 mL bolus normal saline patient is still hypotensive with a blood pressure of 80/40; Stat CTA of the chest and CTA of abdomen are being performed as this note is dictated Results are pending Hospital Course Hospital Course: (1) Coronary artery disease Patient did not have any evidence of an acute coronary syndrome Troponins remain normal ; repeat EKG was a normal sinus rhythm Patient did not have chest pain 12/05/17 12/05/17 01:28 07:40 Troponin I < 0.012 < 0.012 12/04/17 12:26 Troponin I < 0.012 (2) Hypotension Etiology for hypotension was likely hypovolemia CTA of the chest and abdomen was negative for dissection There was no evidence of GI bleed H&H remained stable 12/04/17 12/05/17 12/05/17 23:25 03:34 07:40 Hgb 11.6 L 11.6 L 12.6 L Hct 34.7 L 35.1 L 38.0 Patient responded to fluid challenge and hydration His blood pressure normalized within 48 hours His medications were reevaluated (3) Syncope and collapse Is this a current diagnosis for this admission?: Yes Plan: Patient had syncope and collapse without chest pain and/or headache This is likely secondary to hypotension and vasovagal episode There was no evidence of TIA and/or CVA Head CT showed no acute process And carotid ultrasound showed diffuse calcifications but no significant stenosis Echocardiogram showed preserved LV function and mild diastolic dysfunction Patient remained asymptomatic after hydration Physical Exam Vital Signs: Temp Pulse Resp BP Pulse Ox 98.1 F 80 16 117/65 97 12/06/17 17:56 12/06/17 17:56 12/06/17 17:56 12/06/17 07:58 12/06/17 17:56 Intake & Output 12/05/17 12/06/17 12/07/17 00:59 00:59 00:59 Intake Total 3596 270 Output Total 120 Balance 3476 270 Weight 98.6 kg 98 kg General appearance: PRESENT: no acute distress, cooperative, well-developed, well-nourished Head exam: PRESENT: atraumatic, normocephalic Eye exam: PRESENT: conjunctiva pink, EOMI, PERRLA. ABSENT: scleral icterus Neck exam: ABSENT: carotid bruit, JVD, lymphadenopathy, thyromegaly Respiratory exam: PRESENT: clear to auscultation blayne. ABSENT: rales, rhonchi, wheezes Cardiovascular exam: PRESENT: RRR. ABSENT: diastolic murmur, rubs, systolic murmur Pulses: PRESENT: normal dorsalis pedis pul GI/Abdominal exam: PRESENT: distended, normal bowel sounds, soft. ABSENT: guarding, mass, organolmegaly, rebound, tenderness Rectal exam: PRESENT: deferred Extremities exam: PRESENT: full ROM. ABSENT: calf tenderness, clubbing, pedal edema Neurological exam: PRESENT: alert, awake, oriented to person, oriented to place , oriented to time, oriented to situation, CN II-XII grossly intact. ABSENT: motor sensory deficit Psychiatric exam: PRESENT: appropriate affect, normal mood. ABSENT: homicidal ideation, suicidal ideation Skin exam: PRESENT: dry, intact, warm. ABSENT: cyanosis, rash Results Laboratory Results: 12/05/17 07:40 12/06/17 15:49 Stool Occult Blood NEGATIVE 12/04/17 12/04/17 12/05/17 19:40 19:40 01:28 Creatine Kinase 42 L 50 L CK-MB (CK-2) 0.46 Troponin I < 0.012 NT-Pro-B Natriuret Pep 12/05/17 12/05/17 12/05/17 01:28 03:34 07:40 Creatine Kinase 57 CK-MB (CK-2) 0.50 Troponin I < 0.012 NT-Pro-B Natriuret Pep 252 12/05/17 07:40 Creatine Kinase CK-MB (CK-2) 0.65 Troponin I < 0.012 NT-Pro-B Natriuret Pep Impressions: Chest X-Ray 12/04/17 11:30 IMPRESSION: HEART ENLARGED WITHOUT FAILURE. NO OTHER SIGNIFICANT RADIOGRAPHIC FINDING IN THE CHEST. Chest/Abdomen CTA 12/04/17 16:34 IMPRESSION: 1. No worrisome thoracic findings. Aorta normal. No pulmonary embolus. 2. Status post endovascular repair of aortic aneurysm. Good flow through the endograft. No arterial occlusion or acute abdominal process. Head CT 12/05/17 00:00 IMPRESSION: CHRONIC CHANGES OF ATROPHY AND MICROVASCULAR ISCHEMIA. NO ACUTE PROCESS. EVIDENCE OF ACUTE STROKE: NO. Carotid Doppler Study 12/06/17 00:00 IMPRESSION: Extensive vascular calcifications. No significant stenosis identified. Qualifiers - * PATEINT BEING DISCHARGED WITH ANY OF THE FOLLOWING DIAGNOSIS?: No Plan Discharge Plan: Patient was referred to primary care physician for reevaluation He was also referred to cardiology for medication management Time Spent: Greater than 30 Minutes
[2017-12-07 15:17] LABS: LYME DISEASE IGM AB <0.80 index (0.00-0.79)
== END 2017-12-06 18:22 | disposition home or self-care (01) | DRG 315 ==
LOC: ER 11:14 → EH 14:40 → OBSVTOIN 14:40 → 3S 21:41
PROVIDERS: ADMIT Emergency Medicine; ATTEND Emergency Medicine
PROC: 3E0F73Z Introduction of Anti-inflammatory into Respiratory Tract, Via Natural or Artificial Opening (ICD-10-PCS; principal; 2017-12-04)
DX: I95.9 Hypotension, unspecified (principal); I50.32 Chronic diastolic (congestive) heart failure; I11.0 Hypertensive heart disease with heart failure; E86.1 Hypovolemia; R55 Syncope and collapse; I25.10 Atherosclerotic heart disease of native coronary artery without angina pectoris; I73.9 Peripheral vascular disease, unspecified; E86.0 Dehydration; E78.00 Pure hypercholesterolemia, unspecified; Z95.5 Presence of coronary angioplasty implant and graft; Z79.899 Other long term (current) drug therapy; Z87.891 Personal history of nicotine dependence; Z82.49 Family history of ischemic heart disease and other diseases of the circulatory system
CPT/HCPCS: 36415; 70450; 71045; 71275; 74175; 80053; 81001; 82272; 82550; 82553; 83735; 83880; 84439; 84443; 84484; 85025; 85027; 86617; 86618; 93005; 93010; 93306; 93880; 93970; 94640; 96361; 96374; 99291; J3490; J7030; J7614; J7620; S0164

== ENCOUNTER → 2018-01-04 | Outpatient (CLI) | payer MEDICARE ==
[2018-01-04 09:02] LABS: ABSOLUTE EOSINOPHILS # (AUTO) 0.2 10^3/uL (0.0-0.6); ABSOLUTE LYMPHOCYTES (AUTO) 1.4 10^3/uL (0.5-4.7); ABSOLUTE MONOCYTES (AUTO) 0.7 10^3/uL (0.1-1.4); ABSOLUTE NEUT (AUTO) 2.8 10^3/uL (1.7-8.2); BASOPHILS % (AUTO) 0.5 % (0-2); EOSINOPHILS % (AUTO) 4.4 % (0-6); HEMATOCRIT 41.3 % (37.9-51.0); HEMOGLOBIN 13.6 g/dL (13.5-17.0); LYMPHOCYTES % (AUTO) 26.9 % (13-45); MEAN CORPUSCULAR HEMOGLOBIN 31.6 pg (27.0-33.4); MEAN CORPUSCULAR HGB CONC 32.9 g/dL (32.0-36.0); MEAN CORPUSCULAR VOLUME 96 fl (80-97); MONOCYTES % (AUTO) 13.3 % (3-13); PLATELET COUNT 245 10^3/uL (150-450); RED BLOOD COUNT 4.29 10^6/uL (4.35-5.55); RED CELL DISTRIBUTION WIDTH 14.8 % (11.5-14.0); SEGMENTED NEUTROPHILS % (AUTO) 54.9 % (42-78); TOTAL CELLS COUNTED % (AUTO) 100 %
[2018-01-04 09:26] LABS: ALANINE AMINOTRANSFERASE 27 U/L (21-72); ALKALINE PHOSPHATASE 62 U/L (38-126); ANION GAP 13 (5-19); ASPARTATE AMINO TRANSFERASE 26 U/L (17-59); BILIRUBIN,DIRECT 0.3 mg/dL (0.0-0.4); BILIRUBIN,TOTAL 0.6 mg/dL (0.2-1.3); BLOOD UREA NITROGEN 16 mg/dL (7-20); CALCIUM 9.8 mg/dL (8.4-10.2); CARBON DIOXIDE 30 mmol/L (22-30); CHLORIDE 101 mmol/L (98-107); CHOLESTEROL 114.66 mg/dL (0-200); GLUCOSE 93 mg/dL (75-110); POTASSIUM 4.1 mmol/L (3.6-5.0); SODIUM 143.8 mmol/L (137-145); TOTAL PROTEIN 6.5 g/dL (6.3-8.2); TRIGLYCERIDES 89 mg/dL (<150); URIC ACID 4.7 mg/dL (3.5-8.5)
[2018-01-04 09:37] LABS: DIRECT LDL 58 mg/dL (<100)
== END ==
LOC: OD 07:25
PROVIDERS: ATTEND Family Medicine Geriatric Medicine
DX: I25.10 Atherosclerotic heart disease of native coronary artery without angina pectoris (principal); E03.9 Hypothyroidism, unspecified; M1A.9XX0 Chronic gout, unspecified, without tophus (tophi); Z79.899 Other long term (current) drug therapy; I10 Essential (primary) hypertension
CPT/HCPCS: 36415; 80053; 80061; 84443; 84550; 85025

== ENCOUNTER → 2018-02-17 | Outpatient (CLI) | payer MEDICARE ==
[2018-02-17 08:38] LABS: ABSOLUTE EOSINOPHILS # (AUTO) 0.2 10^3/uL (0.0-0.6); ABSOLUTE LYMPHOCYTES (AUTO) 1.4 10^3/uL (0.5-4.7); ABSOLUTE MONOCYTES (AUTO) 0.7 10^3/uL (0.1-1.4); ABSOLUTE NEUT (AUTO) 3.1 10^3/uL (1.7-8.2); BASOPHILS % (AUTO) 0.4 % (0-2); HEMOGLOBIN 14.4 g/dL (13.5-17.0); MEAN CORPUSCULAR HEMOGLOBIN 31.8 pg (27.0-33.4); MEAN CORPUSCULAR HGB CONC 33.5 g/dL (32.0-36.0); MEAN CORPUSCULAR VOLUME 95 fl (80-97); MONOCYTES % (AUTO) 12.2 % (3-13); PLATELET COUNT 251 10^3/uL (150-450); RED BLOOD COUNT 4.53 10^6/uL (4.35-5.55); RED CELL DISTRIBUTION WIDTH 14.1 % (11.5-14.0); SEGMENTED NEUTROPHILS % (AUTO) 57.4 % (42-78); TOTAL CELLS COUNTED % (AUTO) 100 %; WHITE BLOOD COUNT 5.5 10^3/uL (4.0-10.5)
== END ==
LOC: OD 07:24
PROVIDERS: ATTEND Family Medicine Geriatric Medicine
DX: I10 Essential (primary) hypertension (principal); Z79.899 Other long term (current) drug therapy
CPT/HCPCS: 36415; 85025

== ENCOUNTER → 2018-03-22 | Outpatient (CLI) | payer MEDICARE ==
--- NOTE | 2018-03-22 15:53 | RADIOLOGY REPORT (SQ) ---
EXAM DESCRIPTION: VENOUS UNILATERAL LOWER COMPLETED DATE/TIME: 03/22/2018 2:45 pm REASON FOR STUDY: LLE SWELLING R22.42 LOCALIZED SWELLING, MASS AND LUMP, LEFT LOWER LIMB COMPARISON: None. TECHNIQUE: Dynamic and static schmid scale and color images acquired of the left leg venous system. Se lected spectral images acquired with additional compression and augmentation maneuvers. The contralat eral common femoral vein and saphenofemoral junction were also imaged. Images stored on PACS. LIMITATIONS: None. FINDINGS: COMMON FEMORAL: Normal phasicity, compression and augmentation. No visualized echogenic ma terial on schmid scale. No defects on color images. FEMORAL: Normal compression and augmentation. No visualized echogenic material on schmid scale. No defe cts on color images. POPLITEAL: Normal compression, augmentation. No visualized echogenic material on schmid scale. No defec ts on color images. CALF VESSELS: Normal compression, augmentation. No visualized echogenic material on schmid scale. No de fects on color images. GSV and SSV: Normal compression, augmentation. No visualized echogenic material on schmid scale. No def ects on color images. ANY DEEP VENOUS INSUFFICIENCY: Not evaluated. ANY EVIDENCE OF POPLITEAL CYST: No. OTHER: No other significant finding. CONTRALATERAL COMMON FEMORAL VEIN AND SAPHENOFEMORAL JUNCTION: Normal phasicity, compression and augmentation. No visualized echogenic material on schmid scale. No de fects on color images. IMPRESSION: NO EVIDENCE DVT OR SVT IN THE LEFT LEG. TECHNICAL DOCUMENTATION: JOB ID: [id number] [employer]- All Rights Reserved Reading location - IP/workstation name: [email or web address]
== END ==
LOC: SP 13:29
PROVIDERS: ATTEND Family Medicine
DX: R22.42 Localized swelling, mass and lump, left lower limb (principal)
CPT/HCPCS: 93971

== ENCOUNTER → 2018-05-18 | Outpatient (CLI) | payer MEDICARE, MEDICAID ==
[2018-05-18 10:20] LABS: ABSOLUTE EOSINOPHILS # (AUTO) 0.3 10^3/uL (0.0-0.6); ABSOLUTE LYMPHOCYTES (AUTO) 1.9 10^3/uL (0.5-4.7); ABSOLUTE MONOCYTES (AUTO) 0.7 10^3/uL (0.1-1.4); ABSOLUTE NEUT (AUTO) 3.5 10^3/uL (1.7-8.2); BASOPHILS % (AUTO) 0.4 % (0-2); EOSINOPHILS % (AUTO) 4.2 % (0-6); HEMATOCRIT 44.7 % (37.9-51.0); HEMOGLOBIN 15.2 g/dL (13.5-17.0); MEAN CORPUSCULAR HEMOGLOBIN 32.2 pg (27.0-33.4); MEAN CORPUSCULAR HGB CONC 34.1 g/dL (32.0-36.0); MEAN CORPUSCULAR VOLUME 94 fl (80-97); MONOCYTES % (AUTO) 11.1 % (3-13); PLATELET COUNT 219 10^3/uL (150-450); RED BLOOD COUNT 4.73 10^6/uL (4.35-5.55); RED CELL DISTRIBUTION WIDTH 15.5 % (11.5-14.0); SEGMENTED NEUTROPHILS % (AUTO) 55.3 % (42-78); TOTAL CELLS COUNTED % (AUTO) 100 %; WHITE BLOOD COUNT 6.4 10^3/uL (4.0-10.5)
[2018-05-18 10:50] LABS: ANION GAP 9 (5-19); BLOOD UREA NITROGEN 14 mg/dL (7-20); CALCIUM 9.8 mg/dL (8.4-10.2); CARBON DIOXIDE 31 mmol/L (22-30); CHLORIDE 99 mmol/L (98-107); GLUCOSE 94 mg/dL (75-110); POTASSIUM 4.2 mmol/L (3.6-5.0); SODIUM 139.3 mmol/L (137-145); URIC ACID 4.7 mg/dL (3.5-8.5)
== END ==
LOC: OD 09:29
PROVIDERS: ATTEND Family Medicine Geriatric Medicine
DX: E03.9 Hypothyroidism, unspecified (principal); I10 Essential (primary) hypertension; R60.0 Localized edema; M1A.9XX0 Chronic gout, unspecified, without tophus (tophi)
CPT/HCPCS: 36415; 80048; 84443; 84550; 85025

== ENCOUNTER → 2018-07-29 | Outpatient (CLI) | payer MEDICARE, MEDICAID ==
[2018-07-29 09:53] LABS: ABSOLUTE EOSINOPHILS # (AUTO) 0.2 10^3/uL (0.0-0.6); ABSOLUTE LYMPHOCYTES (AUTO) 1.6 10^3/uL (0.5-4.7); ABSOLUTE MONOCYTES (AUTO) 0.6 10^3/uL (0.1-1.4); ABSOLUTE NEUT (AUTO) 3.1 10^3/uL (1.7-8.2); BASOPHILS % (AUTO) 0.5 % (0-2); EOSINOPHILS % (AUTO) 4.2 % (0-6); HEMATOCRIT 43.7 % (37.9-51.0); HEMOGLOBIN 14.8 g/dL (13.5-17.0); LYMPHOCYTES % (AUTO) 29.4 % (13-45); MEAN CORPUSCULAR HEMOGLOBIN 32.5 pg (27.0-33.4); MEAN CORPUSCULAR HGB CONC 33.7 g/dL (32.0-36.0); MEAN CORPUSCULAR VOLUME 96 fl (80-97); MONOCYTES % (AUTO) 10.9 % (3-13); PLATELET COUNT 219 10^3/uL (150-450); RED BLOOD COUNT 4.54 10^6/uL (4.35-5.55); RED CELL DISTRIBUTION WIDTH 14.2 % (11.5-14.0); TOTAL CELLS COUNTED % (AUTO) 100 %; WHITE BLOOD COUNT 5.6 10^3/uL (4.0-10.5)
[2018-07-29 10:36] LABS: ALANINE AMINOTRANSFERASE 24 U/L (21-72); ALKALINE PHOSPHATASE 69 U/L (38-126); ANION GAP 11 (5-19); ASPARTATE AMINO TRANSFERASE 30 U/L (17-59); BILIRUBIN,DIRECT 0.3 mg/dL (0.0-0.4); BILIRUBIN,TOTAL 0.7 mg/dL (0.2-1.3); BLOOD UREA NITROGEN 15 mg/dL (7-20); CALCIUM 9.7 mg/dL (8.4-10.2); CARBON DIOXIDE 28 mmol/L (22-30); CHLORIDE 104 mmol/L (98-107); CHOLESTEROL 120.85 mg/dL (0-200); GLUCOSE 97 mg/dL (75-110); POTASSIUM 4.5 mmol/L (3.6-5.0); SODIUM 143.4 mmol/L (137-145); TOTAL PROTEIN 6.6 g/dL (6.3-8.2); TRIGLYCERIDES 81 mg/dL (<150); URIC ACID 4.6 mg/dL (3.5-8.5)
[2018-07-29 10:47] LABS: DIRECT LDL 70 mg/dL (<100)
== END ==
LOC: OD 08:30
PROVIDERS: ATTEND Family Medicine Geriatric Medicine
DX: I25.10 Atherosclerotic heart disease of native coronary artery without angina pectoris (principal); I10 Essential (primary) hypertension; E03.9 Hypothyroidism, unspecified; Z79.899 Other long term (current) drug therapy; M1A.9XX0 Chronic gout, unspecified, without tophus (tophi)
CPT/HCPCS: 36415; 80053; 80061; 84443; 84550; 85025

== ENCOUNTER → 2018-08-05 | Outpatient (CLI) | payer MEDICARE, MEDICAID ==
--- NOTE | 2018-08-05 10:03 | RADIOLOGY REPORT (SQ) ---
EXAM DESCRIPTION: CLAVICLE LEFT COMPLETED DATE/TIME: 08/05/2018 9:44 am REASON FOR STUDY: LEFT CLAVICLE PAIN R05 COUGH M89.8X1 OTHER SPECIFIED DISORDERS OF BONE, SHOULDER COMPARISON: CT chest 12/04/2017 Two-view chest 08/05/2018 NUMBER OF VIEWS: Two views. TECHNIQUE: Frontal and angled images were acquired of the left clavicle. LIMITATIONS: None. FINDINGS: MINERALIZATION: Normal. BONES: No acute fracture or dislocation. No worrisome bone lesions. SOFT TISSUES: No obvious swelling or foreign body. OTHER: No widening of the AC joint or coracoclavicular interval. No bulky bony spurring at the AC toñito int. Sternoclavicular joint grossly intact. IMPRESSION: NEGATIVE STUDY OF THE LEFT CLAVICLE. NO RADIOGRAPHIC EVIDENCE OF ACUTE INJURY. TECHNICAL DOCUMENTATION: JOB ID: [id number] [employer]- All Rights Reserved Reading location - IP/workstation name: [email or web address]
--- NOTE | 2018-08-05 10:07 | RADIOLOGY REPORT (SQ) ---
EXAM DESCRIPTION: CHEST PA/LATERAL COMPLETED DATE/TIME: 08/05/2018 9:44 am REASON FOR STUDY: COUGH COMPARISON: CT chest 12/04/2017 AP chest 12/04/2017 EXAM PARAMETERS: NUMBER OF VIEWS: two views TECHNIQUE: Digital Frontal and Lateral radiographic views of the chest acquired. RADIATION DOSE: NA LIMITATIONS: none FINDINGS: LUNGS AND PLEURA: Lungs are hyperinflated with flattening in the hemidiaphragms. No focal infiltrates. No pleural effusion. No pneumothorax. MEDIASTINUM AND HILAR STRUCTURES: No masses or contour abnormalities. HEART AND VASCULAR STRUCTURES: Heart normal size. No evidence for failure. BONES: No acute findings. HARDWARE: None in the chest. OTHER: No other significant finding. IMPRESSION: Obstructive lung disease. No acute changes TECHNICAL DOCUMENTATION: JOB ID: [id number] [employer] All Rights Reserved Reading location - IP/workstation name: [email or web address]
== END ==
LOC: OD 09:28
PROVIDERS: ATTEND Family Medicine Geriatric Medicine
DX: J44.9 Chronic obstructive pulmonary disease, unspecified (principal); R05 Cough; M89.8X1 Other specified disorders of bone, shoulder
CPT/HCPCS: 71046

== ENCOUNTER → 2018-12-07 | Outpatient (CLI) | payer MEDICARE, MEDICAID ==
[2018-12-07 09:04] LABS: ABSOLUTE EOSINOPHILS # (AUTO) 0.1 10^3/uL (0.0-0.6); ABSOLUTE LYMPHOCYTES (AUTO) 1.6 10^3/uL (0.5-4.7); ABSOLUTE MONOCYTES (AUTO) 0.6 10^3/uL (0.1-1.4); BASOPHILS % (AUTO) 0.5 % (0-2); EOSINOPHILS % (AUTO) 2.4 % (0-6); HEMATOCRIT 45.3 % (37.9-51.0); HEMOGLOBIN 15.3 g/dL (13.5-17.0); LYMPHOCYTES % (AUTO) 29.4 % (13-45); MEAN CORPUSCULAR HGB CONC 33.9 g/dL (32.0-36.0); MEAN CORPUSCULAR VOLUME 97 fl (80-97); MONOCYTES % (AUTO) 11.7 % (3-13); PLATELET COUNT 208 10^3/uL (150-450); RED BLOOD COUNT 4.65 10^6/uL (4.35-5.55); RED CELL DISTRIBUTION WIDTH 14.3 % (11.5-14.0); TOTAL CELLS COUNTED % (AUTO) 100 %; WHITE BLOOD COUNT 5.4 10^3/uL (4.0-10.5)
[2018-12-07 09:22] LABS: ALANINE AMINOTRANSFERASE 32 U/L (21-72); ALBUMIN 4.3 g/dL (3.5-5.0); ALKALINE PHOSPHATASE 56 U/L (38-126); ANION GAP 7 (5-19); ASPARTATE AMINO TRANSFERASE 32 U/L (17-59); BILIRUBIN,DIRECT 0.3 mg/dL (0.0-0.4); BLOOD UREA NITROGEN 17 mg/dL (7-20); CARBON DIOXIDE 29 mmol/L (22-30); CHLORIDE 103 mmol/L (98-107); CHOLESTEROL 134.81 mg/dL (0-200); GLUCOSE 87 mg/dL (75-110); SODIUM 138.5 mmol/L (137-145); TOTAL PROTEIN 7.1 g/dL (6.3-8.2); TRIGLYCERIDES 117 mg/dL (<150)
[2018-12-07 09:33] LABS: DIRECT LDL 73 mg/dL (<100)
== END ==
LOC: OD 07:52
PROVIDERS: ATTEND Family Medicine Geriatric Medicine
DX: I10 Essential (primary) hypertension (principal); E78.5 Hyperlipidemia, unspecified; E03.9 Hypothyroidism, unspecified; Z79.899 Other long term (current) drug therapy
CPT/HCPCS: 36415; 80053; 80061; 84443; 85025

== ENCOUNTER 2019-04-06 06:39 | Day surgery (SDC) | payer MEDICARE, MEDICAID ==
[~2019-04-06 06:39] MED LIST: KETOROLAC TROMETHAMINE 0.45% 4 DROP/0.4 ML DROPERETTE OS PRN
[2019-04-06] MEDS ORDERED: MIDAZOLAM 2 MG/2 ML INJ ONE (06:42)
[2019-04-06] MEDS: CYCLOPENTOLATE 0.2%/PHENYLEPHRINE 1% OPH SOLN 2 ML OS PRN ×3 (06:55→07:18)
[2019-04-06] MEDS: BESIFLOXACIN HCL 0.6% OPH SUSP 5 ML BOTTLE OS PRN ×4 (06:55→07:46)
[2019-04-06] MEDS: TROPICAMIDE 1% OPH SOLN 3 ML OS PRN ×3 (06:55→07:18)
[2019-04-06] MEDS: TETRACAINE HCL 0.5% OPH SOLN 4 ML OS PRN ×3 (06:55→07:26)
[2019-04-06] MEDS ORDERED: LIDOCAINE 1%/PHENYLEPHRINE 1.5% 1 ML VIAL ONE (07:07)
[2019-04-06] MEDS ORDERED: EPINEPHRINE INJ/PF 1 MG/1 ML AMPULE ONE (07:07)
[2019-04-06] MEDS ORDERED: CHONDR SU A NA/HYALUR INTRAOC KIT (SURGICARE) ONE (07:09)
[2019-04-06] MEDS ORDERED: LIDOCAINE 2% INJ-PF (20 MG/ML) 10 ML AMPUL ONE (07:36)
[2019-04-06] MEDS: DORZOLAMIDE HCL 2%/TIMOLOL MALEAT 0.5% OPH SOLN 10 ML OS PRN ×2 (07:46)
--- NOTE | 2019-04-06 13:33 | Operative Report ---
Operative Report-[facility] Operative Report: DATE OF SURGERY: 04/06/2019 PREOPERATIVE DIAGNOSIS: Cataract, right eye POSTOPERATIVE DIAGNOSIS: Cataract, right eye OPERATION: Cataract extraction with insertion of an IOL of the right eye. Intraocular Lens Model: [19.6bf81ah] SURGEON: Kyle Sierra MD ANESTHESIA: Topical PROCEDURE: After obtaining appropriate consent, the patient's right eye was prepped and draped in a sterile fashion as well as the surgeon in the sterile manner and cataract surgery was started. First a paracentesis blade was used to make a side-port incision. Viscoelastic was used to inflate the anterior chamber. Next a 2.4 mm incision was made with a 2.4 mm blade, clear corneal temporarily. A continuous capsulorrhexis was made using a cystotome and Utrata forceps. Following this hydrodissection was carried out to make the luisito fully loose and mobile and it was rotated. Following this, a divide and conquer technique was used to phacoemulsify the luisito. The remaining cortex was removed with an irrigation/aspiration. Provisc was instilled into the capsular bag to inflate the bag. The intraocular lens was placed. The remaining viscoelastic material was removed with irrigation/aspiration. Following this, the incision was found to be watertight. Besivance and Cosopt was instilled into the eye and a protective shield was placed over the eye. The patient was reurned to the postoperative recovery in a stable condition.
--- NOTE | 2019-04-06 13:33 | PDOC DISCHARGE SUMMARY ---
Discharge Summary-[facility] Discharge Summary: DATE OF SURGERY: 04/06/2019 PREOPERATIVE DIAGNOSIS: Cataract, left eye POSTOPERATIVE DIAGNOSIS: Cataract, left eye OPERATION: Cataract extraction with insertion of an IOL of the left eye. SURGEON: Kyle Sierra MD ANESTHESIA: Topical The patient underwent surgery because they are having [difficulty seeing tv.]. They're to be on a regular diet, no bending at their waist, and no heavy lifting. They should use the prescribed antibiotic, NSAID, and steroid at 3 PM and 8 PM. They should sleep with a rigid shield and I will see them for 1 day postoperative tomorrow.
== END 2019-04-06 08:22 | disposition home or self-care (01) ==
LOC: SC 06:39
PROVIDERS: ATTEND Internal Medicine
DX: H25.13 Age-related nuclear cataract, bilateral (principal); H43.813 Vitreous degeneration, bilateral; J44.9 Chronic obstructive pulmonary disease, unspecified; I10 Essential (primary) hypertension; M06.9 Rheumatoid arthritis, unspecified; E03.9 Hypothyroidism, unspecified; Z87.891 Personal history of nicotine dependence; Z79.899 Other long term (current) drug therapy
CPT/HCPCS: 66984; V2632; J2250; J3490 ×3; A9270; J0171; J2370; 142

== ENCOUNTER → 2019-04-24 | Outpatient (CLI) | payer MEDICARE, MEDICAID ==
[2019-04-24 08:20] LABS: ABSOLUTE EOSINOPHILS # (AUTO) 0.2 10^3/uL (0.0-0.6); ABSOLUTE LYMPHOCYTES (AUTO) 1.5 10^3/uL (0.5-4.7); ABSOLUTE MONOCYTES (AUTO) 0.6 10^3/uL (0.1-1.4); ABSOLUTE NEUT (AUTO) 2.5 10^3/uL (1.7-8.2); BASOPHILS % (AUTO) 0.4 % (0-2); EOSINOPHILS % (AUTO) 3.4 % (0-6); HEMATOCRIT 44.3 % (37.9-51.0); HEMOGLOBIN 14.8 g/dL (13.5-17.0); LYMPHOCYTES % (AUTO) 31.7 % (13-45); MEAN CORPUSCULAR HEMOGLOBIN 32.4 pg (27.0-33.4); MEAN CORPUSCULAR HGB CONC 33.5 g/dL (32.0-36.0); MEAN CORPUSCULAR VOLUME 97 fl (80-97); MONOCYTES % (AUTO) 11.9 % (3-13); PLATELET COUNT 194 10^3/uL (150-450); RED BLOOD COUNT 4.58 10^6/uL (4.35-5.55); RED CELL DISTRIBUTION WIDTH 13.3 % (11.5-14.0); SEGMENTED NEUTROPHILS % (AUTO) 52.6 % (42-78); TOTAL CELLS COUNTED % (AUTO) 100 %; WHITE BLOOD COUNT 4.7 10^3/uL (4.0-10.5)
[2019-04-24 08:46] LABS: ALBUMIN 4.4 g/dL (3.5-5.0); ALKALINE PHOSPHATASE 81 U/L (38-126); ANION GAP 9 (5-19); ASPARTATE AMINO TRANSFERASE 28 U/L (17-59); BILIRUBIN,DIRECT 0.3 mg/dL (0.0-0.4); BILIRUBIN,TOTAL 0.8 mg/dL (0.2-1.3); BLOOD UREA NITROGEN 11 mg/dL (7-20); CARBON DIOXIDE 31 mmol/L (22-30); CHLORIDE 101 mmol/L (98-107); CHOLESTEROL 137.69 mg/dL (0-200); GLUCOSE 101 mg/dL (75-110); POTASSIUM 4.2 mmol/L (3.6-5.0); TOTAL PROTEIN 7.1 g/dL (6.3-8.2); TRIGLYCERIDES 114 mg/dL (<150); URIC ACID 4.4 mg/dL (3.5-8.5)
--- NOTE | 2019-04-24 08:51 | RADIOLOGY REPORT (SQ) ---
EXAM DESCRIPTION: SACRUM AND COCCYX COMPLETED DATE/TIME: 04/24/2019 8:05 am REASON FOR STUDY: LOW BACK PAIN I10 ESSENTIAL (PRIMARY) HYPERTENSION E78.5 HYPERLIPIDEMIA, UNSPECI FIED Z79.899 OTHER GROUP HOME (CURRENT) DRUG THERAPY COMPARISON: None. NUMBER OF VIEWS: Three views. TECHNIQUE: AP, lateral, and tilt views of the sacrum and coccyx. LIMITATIONS: None. FINDINGS: MINERALIZATION: Osteopenia. BONES: No acute fracture or dislocation. No worrisome bone lesions. SOFT TISSUES: No soft tissue swelling. No foreign body. OTHER: No other significant finding. IMPRESSION: NEGATIVE STUDY OF THE SACRUM AND COCCYX. TECHNICAL DOCUMENTATION: JOB ID: [id number] [employer]- All Rights Reserved Reading location - IP/workstation name: [email or web address]
--- NOTE | 2019-04-24 08:53 | RADIOLOGY REPORT (SQ) ---
EXAM DESCRIPTION: LUMBAR SPINE COMPLETE COMPLETED DATE/TIME: 04/24/2019 8:05 am REASON FOR STUDY: LOW BACK PAIN I10 ESSENTIAL (PRIMARY) HYPERTENSION E78.5 HYPERLIPIDEMIA, UNSPECI FIED Z79.899 OTHER SKILLED NURSING (CURRENT) DRUG THERAPY COMPARISON: None. NUMBER OF VIEWS: Five views including obliques. TECHNIQUE: AP, lateral, oblique, and sacral radiographic images acquired of the lumbar spine. LIMITATIONS: None. FINDINGS: MINERALIZATION: Osteopenia. SEGMENTATION: Normal. No transitional anatomy. ALIGNMENT: Normal. VERTEBRAE: Mild wedging of the superior endplate of L1. This is new from November 2017. Recommend MRI for further evaluation. The patient may be a candidate for kyphoplasty. DISCS: Multilevel disc space narrowing with osteophytes. POSTERIOR ELEMENTS: Pedicles and facets are intact. No pars defect or posterior arch defects. Facet arthropathy is present. HARDWARE: None in the spine. PARASPINAL SOFT TISSUES: Normal. PELVIS: Intact as visualized. No fractures or worrisome bone lesions. SI joints intact. OTHER: Endovascular stent graft is in place. IMPRESSION: Mild compression deformity of L1. Age is indeterminate. Recommend MRI for further eval uation. The patient may be a candidate for kyphoplasty. TECHNICAL DOCUMENTATION: JOB ID: [id number] [employer]- All Rights Reserved Reading location - IP/workstation name: [email or web address]
[2019-04-24 08:57] LABS: DIRECT LDL 81 mg/dL (<100)
== END ==
LOC: OD 07:29
PROVIDERS: ATTEND Family Medicine Geriatric Medicine
DX: M54.5 Low back pain (principal); E78.5 Hyperlipidemia, unspecified; I11.0 Hypertensive heart disease with heart failure; Z79.899 Other long term (current) drug therapy; I50.32 Chronic diastolic (congestive) heart failure; R31.9 Hematuria, unspecified; E03.9 Hypothyroidism, unspecified
CPT/HCPCS: 36415; 72110; 72220; 80053; 80061; 84153; 84443; 84550; 85025

== ENCOUNTER 2019-04-27 06:24 | Day surgery (SDC) | payer MEDICARE, MEDICAID ==
[~2019-04-27 06:24] MED LIST changes: +KETOROLAC TROMETHAMINE 0.45% 4 DROP/0.4 ML DROPERETTE OD PRN; -KETOROLAC TROMETHAMINE 0.45% 4 DROP/0.4 ML DROPERETTE OS PRN
[2019-04-27] MEDS: TETRACAINE HCL 0.5% OPH SOLN 4 ML OD PRN ×3 (07:00→07:25)
[2019-04-27] MEDS: TROPICAMIDE 1% OPH SOLN 15 ML OD PRN ×3 (07:00→07:20)
[2019-04-27] MEDS: BESIFLOXACIN HCL 0.6% OPH SUSP 5 ML BOTTLE OD PRN ×4 (07:00→07:46)
[2019-04-27] MEDS: CYCLOPENTOLATE 0.2%/PHENYLEPHRINE 1% OPH SOLN 2 ML OD PRN ×3 (07:00→07:20)
[2019-04-27] MEDS ORDERED: LIDOCAINE 1%/PHENYLEPHRINE 1.5% 1 ML VIAL ONE (07:12)
[2019-04-27] MEDS ORDERED: EPINEPHRINE INJ/PF 1 MG/1 ML AMPULE ONE (07:12)
[2019-04-27] MEDS ORDERED: CHONDR SU A NA/HYALUR INTRAOC KIT (SURGICARE) ONE (07:12)
[2019-04-27] MEDS ORDERED: MIDAZOLAM 2 MG/2 ML INJ ONE (07:19)
[2019-04-27] MEDS: DORZOLAMIDE HCL 2%/TIMOLOL MALEAT 0.5% OPH SOLN 10 ML OD PRN ×2 (07:46)
--- NOTE | 2019-04-28 07:42 | Operative Report ---
Operative Report-[facility] Operative Report: DATE OF SURGERY: 04/27/2019 PREOPERATIVE DIAGNOSIS: Cataract, right eye POSTOPERATIVE DIAGNOSIS: Cataract, right eye OPERATION: Cataract extraction with insertion of an IOL of the right eye. Intraocular Lens Model: [18.5 [id number]] reason for surgery was difficulty seeing words on the television SURGEON: Kyle Sierra MD ANESTHESIA: Topical PROCEDURE: After obtaining appropriate consent, the patient's right eye was prepped and draped in a sterile fashion as well as the surgeon in the sterile manner and cataract surgery was started. First a paracentesis blade was used to make a side-port incision. Viscoelastic was used to inflate the anterior chamber. Next a 2.4 mm incision was made with a 2.4 mm blade, clear corneal temporarily. A continuous capsulorrhexis was made using a cystotome and Utrata forceps. Following this hydrodissection was carried out to make the luisito fully loose and mobile and it was rotated. Following this, a divide and conquer technique was used to phacoemulsify the luisito. The remaining cortex was removed with an irrigation/aspiration. Provisc was instilled into the capsular bag to inflate the bag. The intraocular lens was placed. The remaining viscoelastic material was removed with irrigation/aspiration. Following this, the incision was found to be watertight. Besivance and Cosopt was instilled into the eye and a protective shield was placed over the eye. The patient was reurned to the postoperative recovery in a stable condition.
== END 2019-04-27 08:29 | disposition home or self-care (01) ==
LOC: SC 06:24
PROVIDERS: ATTEND Internal Medicine
DX: H25.11 Age-related nuclear cataract, right eye (principal); Z96.1 Presence of intraocular lens; J44.9 Chronic obstructive pulmonary disease, unspecified; I10 Essential (primary) hypertension; E07.9 Disorder of thyroid, unspecified; I49.9 Cardiac arrhythmia, unspecified; M10.9 Gout, unspecified; Z79.899 Other long term (current) drug therapy; Z79.02 Long term (current) use of antithrombotics/antiplatelets
CPT/HCPCS: 00142; 66984; V2632; J2250; J3490 ×2; A9270; J0171; J2370; 142

== ENCOUNTER → 2019-08-28 | Outpatient (CLI) | payer MEDICARE, MEDICAID ==
--- NOTE | 2019-08-28 10:32 | RADIOLOGY REPORT (SQ) ---
EXAM DESCRIPTION: SACRUM AND COCCYX COMPLETED DATE/TIME: 08/28/2019 10:23 am REASON FOR STUDY: ABD PAIN,LBP R10.9 UNSPECIFIED ABDOMINAL PAIN M54.5 LOW BACK PAIN COMPARISON: 04/24/2019 NUMBER OF VIEWS: Three views. TECHNIQUE: AP, lateral, and tilt views of the sacrum and coccyx. LIMITATIONS: None. FINDINGS: MINERALIZATION: Normal. BONES: No acute fracture or dislocation. No worrisome bone lesions. SOFT TISSUES: No soft tissue swelling. No foreign body. OTHER: No other significant finding. IMPRESSION: NEGATIVE STUDY OF THE SACRUM AND COCCYX. TECHNICAL DOCUMENTATION: JOB ID: [id number] [employer]- All Rights Reserved Reading location - IP/workstation name: [email or web address]
--- NOTE | 2019-08-28 10:33 | RADIOLOGY REPORT (SQ) ---
EXAM DESCRIPTION: LUMBAR SPINE COMPLETE COMPLETED DATE/TIME: 08/28/2019 10:23 am REASON FOR STUDY: ABD PAIN,LBP R10.9 UNSPECIFIED ABDOMINAL PAIN M54.5 LOW BACK PAIN COMPARISON: 04/24/2019 NUMBER OF VIEWS: Five views including obliques. TECHNIQUE: AP, lateral, oblique, and sacral radiographic images acquired of the lumbar spine. LIMITATIONS: None. FINDINGS: MINERALIZATION: Normal. SEGMENTATION: Normal. No transitional anatomy. ALIGNMENT: Normal. VERTEBRAE: Stable mild compression deformity of L1. DISCS: Multilevel disc space narrowing with osteophytes. POSTERIOR ELEMENTS: Pedicles and facets are intact. No pars defect or posterior arch defects. Facet arthropathy is present. HARDWARE: None in the spine. PARASPINAL SOFT TISSUES: Normal. PELVIS: Intact as visualized. No fractures or worrisome bone lesions. SI joints intact. OTHER: Endovascular stent graft is in place. IMPRESSION: Multilevel spondylosis. Chronic mild wedge deformity of L1. TECHNICAL DOCUMENTATION: JOB ID: [id number] [employer]- All Rights Reserved Reading location - IP/workstation name: [email or web address]
--- NOTE | 2019-08-28 10:35 | RADIOLOGY REPORT (SQ) ---
EXAM DESCRIPTION: ACUTE ABDOMEN SERIES COMPLETED DATE/TIME: 08/28/2019 10:23 am REASON FOR STUDY: ABD PAIN,LBP R10.9 UNSPECIFIED ABDOMINAL PAIN M54.5 LOW BACK PAIN COMPARISON: None. NUMBER OF VIEWS: Three views. TECHNIQUE: Frontal chest, supine abdomen and upright/decubitus abdomen radiographic images acquired. LIMITATIONS: None. FINDINGS: CHEST: Lungs clear of infiltrates. FREE AIR: None. No abnormal gas collections. BOWEL GAS PATTERN: Gas pattern is nonobstructive. There is a moderate amount of stool throughout the colon. CALCIFICATIONS: No suspicious calcifications. HARDWARE: Endovascular stent graft is in place. SOFT TISSUES: No gross mass or suggestion of organomegaly. BONES: No acute fracture. No worrisome bone lesions. OTHER: No other significant finding. IMPRESSION: Moderate constipation. No obstruction. Endovascular stent graft is in place. TECHNICAL DOCUMENTATION: JOB ID: [id number] [employer]- All Rights Reserved Reading location - IP/workstation name: [email or web address]
== END ==
LOC: OD 09:58
PROVIDERS: ATTEND Family Medicine Geriatric Medicine
DX: R10.9 Unspecified abdominal pain (principal); K59.00 Constipation, unspecified; M47.896 Other spondylosis, lumbar region; M54.5 Low back pain
CPT/HCPCS: 72110; 72220; 74022

== ENCOUNTER → 2019-09-26 | Outpatient (CLI) | payer MEDICARE, MEDICAID ==
[2019-09-26 09:53] LABS: ALBUMIN 4.6 g/dL (3.5-5.0); ALKALINE PHOSPHATASE 61 U/L (38-126); ANION GAP 12 (5-19); ASPARTATE AMINO TRANSFERASE 34 U/L (17-59); BILIRUBIN,DIRECT 0.3 mg/dL (0.0-0.4); BILIRUBIN,TOTAL 0.9 mg/dL (0.2-1.3); BLOOD UREA NITROGEN 15 mg/dL (7-20); CALCIUM 10.1 mg/dL (8.4-10.2); CARBON DIOXIDE 28 mmol/L (22-30); CHLORIDE 99 mmol/L (98-107); CHOLESTEROL 129.48 mg/dL (0-200); GLUCOSE 92 mg/dL (75-110); POTASSIUM 4.3 mmol/L (3.6-5.0); TOTAL PROTEIN 7.7 g/dL (6.3-8.2); TRIGLYCERIDES 109 mg/dL (<150)
[2019-09-26 10:04] LABS: DIRECT LDL 70 mg/dL (<100)
== END ==
LOC: OD 08:41
PROVIDERS: ATTEND Family Medicine Geriatric Medicine
DX: E78.5 Hyperlipidemia, unspecified (principal); I10 Essential (primary) hypertension; R73.9 Hyperglycemia, unspecified; J44.9 Chronic obstructive pulmonary disease, unspecified; Z79.899 Other long term (current) drug therapy
CPT/HCPCS: 36415; 80053; 80061; 84443

== ENCOUNTER → 2019-10-03 | Outpatient (CLI) | payer MEDICARE, MEDICAID ==
[2019-10-03 09:55] LABS: ABSOLUTE EOSINOPHILS # (AUTO) 0.2 10^3/uL (0.0-0.6); ABSOLUTE LYMPHOCYTES (AUTO) 1.7 10^3/uL (0.5-4.7); ABSOLUTE MONOCYTES (AUTO) 0.6 10^3/uL (0.1-1.4); ABSOLUTE NEUT (AUTO) 3.1 10^3/uL (1.7-8.2); BASOPHILS % (AUTO) 0.5 % (0-2); EOSINOPHILS % (AUTO) 2.8 % (0-6); HEMATOCRIT 45.1 % (37.9-51.0); HEMOGLOBIN 15.3 g/dL (13.5-17.0); LYMPHOCYTES % (AUTO) 29.6 % (13-45); MEAN CORPUSCULAR HEMOGLOBIN 32.9 pg (27.0-33.4); MEAN CORPUSCULAR HGB CONC 33.8 g/dL (32.0-36.0); MEAN CORPUSCULAR VOLUME 97 fl (80-97); MONOCYTES % (AUTO) 11.5 % (3-13); PLATELET COUNT 210 10^3/uL (150-450); RED BLOOD COUNT 4.65 10^6/uL (4.35-5.55); RED CELL DISTRIBUTION WIDTH 14.1 % (11.5-14.0); SEGMENTED NEUTROPHILS % (AUTO) 55.6 % (42-78); TOTAL CELLS COUNTED % (AUTO) 100 %; WHITE BLOOD COUNT 5.6 10^3/uL (4.0-10.5)
== END ==
LOC: OD 08:52
PROVIDERS: ATTEND Family Medicine Geriatric Medicine
DX: E78.5 Hyperlipidemia, unspecified (principal); I10 Essential (primary) hypertension; R73.9 Hyperglycemia, unspecified; J44.9 Chronic obstructive pulmonary disease, unspecified; Z79.899 Other long term (current) drug therapy
CPT/HCPCS: 36415; 85025

== ENCOUNTER → 2020-01-23 | Outpatient (CLI) | payer MEDICARE, MEDICAID ==
[2020-01-23 08:45] LABS: ABSOLUTE EOSINOPHILS # (AUTO) 0.2 10^3/uL (0.0-0.6); ABSOLUTE LYMPHOCYTES (AUTO) 1.5 10^3/uL (0.5-4.7); ABSOLUTE MONOCYTES (AUTO) 0.6 10^3/uL (0.1-1.4); BASOPHILS % (AUTO) 0.4 % (0-2); EOSINOPHILS % (AUTO) 2.9 % (0-6); HEMATOCRIT 44.4 % (37.9-51.0); HEMOGLOBIN 15.1 g/dL (13.5-17.0); LYMPHOCYTES % (AUTO) 28.5 % (13-45); MEAN CORPUSCULAR HEMOGLOBIN 32.7 pg (27.0-33.4); MEAN CORPUSCULAR VOLUME 96 fl (80-97); PLATELET COUNT 187 10^3/uL (150-450); RED BLOOD COUNT 4.62 10^6/uL (4.35-5.55); RED CELL DISTRIBUTION WIDTH 14.2 % (11.5-14.0); SEGMENTED NEUTROPHILS % (AUTO) 57.2 % (42-78); TOTAL CELLS COUNTED % (AUTO) 100 %; WHITE BLOOD COUNT 5.3 10^3/uL (4.0-10.5)
[2020-01-23 09:09] LABS: ALBUMIN 4.3 g/dL (3.5-5.0); ALKALINE PHOSPHATASE 72 U/L (38-126); ANION GAP 6 (5-19); ASPARTATE AMINO TRANSFERASE 29 U/L (17-59); BILIRUBIN,TOTAL 0.7 mg/dL (0.2-1.3); BLOOD UREA NITROGEN 18 mg/dL (7-20); CALCIUM 9.7 mg/dL (8.4-10.2); CARBON DIOXIDE 30 mmol/L (22-30); CHLORIDE 101 mmol/L (98-107); CHOLESTEROL 123.54 mg/dL (0-200); GLUCOSE 98 mg/dL (75-110); POTASSIUM 4.5 mmol/L (3.6-5.0); TOTAL PROTEIN 7.2 g/dL (6.3-8.2); TRIGLYCERIDES 96 mg/dL (<150)
[2020-01-23 09:21] LABS: DIRECT LDL 61 mg/dL (<100)
== END ==
LOC: OD 07:51
PROVIDERS: ATTEND Family Medicine Geriatric Medicine
DX: E78.5 Hyperlipidemia, unspecified (principal); I10 Essential (primary) hypertension; R73.9 Hyperglycemia, unspecified; Z79.899 Other long term (current) drug therapy
CPT/HCPCS: 36415; 80053; 80061; 84443; 85025